=== PATIENT | female | born 1990 | race Caucasian/White ===

== ENCOUNTER 2018-07-28 06:50 | Inpatient (IN) | payer OTHER ==
[2018-07-28] VITALS (15 sets, daily range): BP systolic 106–148; BP diastolic 60–89; PULSE 80–111; TEMP 97.3–97.6
[~2018-07-28] VITALS: Ht 172.7 cm; Wt 95.5 kg
--- NOTE | 2018-07-28 06:45 | NUR ---
0611: Call from ER that 38wk patient arriving in ambulance bay in labor. 0613: Patient onto unit via stretcher escorted by EMS. Patient bearing down with contractions. Patient pants/underwear removed. SVE Complete. 0614: . Room, patient, and staff prepped for delivery. notified of patient in labor, requested on unit. 0615: Spontaneous vaginal delivery of viable male assisted by Rukhsana MCKEON. Care of infant assumed by Pillo MCKEON. 0630: at bedside. 0633: Spontaneous vaginal delivery of placenta assisted by . Pitocin infusing at 333ml/hr per orders. Fundus firm, lochia WNL. Perineum intact. 0635: Recovery started. Fundus firm, lochia WNL.
[~2018-07-28 06:50] MED LIST: FLAGYL500 MG PO; MOTRIN 600600 MG/TAB PO; NIFEREX-15150 MG/CAP PO; NO HOME MEDICATIONS; NORCO 325 MG-51 TAB PO; PERCOCET 325 MG1 TA2 PO; PHENERGAN 25 TA25 MG PO; PRENATAL1 TA1; PRENATAL1 TA1 PO
[2018-07-28 07:27] LABS: BASO % 0.2 % (0.0-2.0); EOS # 0.2 (0.0-0.7); EOS % 1.2 % (0-4.0); GRAN # 10.3 (1.4-6.5); GRAN % 70.6 % (42.2-75.2); HEMATOCRIT 37.9 % (37.0-47.0); HEMOGLOBIN 13.4 g/dl (12.5-16.0); LYMPH # 2.9 (1.2-3.4); LYMPH % 19.7 % (20.0-51.0); MEAN CELL VOLUME 91 fl (80.0-100.0); MEAN CORPUSCULAR HEMOGLOBIN 32 pg (27.0-31.0); MEAN CORPUSCULAR HGB CONC 35 g/dl (33.0-37.0); MEAN PLATELET VOLUME 10.4 fl (7.4-10.4); MONO # 1.1 (0.1-0.6); MONO % 7.3 % (1.7-9.3); PLATELET COUNT 293 K/mm3 (130-400); RED BLOOD COUNT 4.19 M/mm3 (4.10-5.30); REDCELL DISTRIBUTION WIDTH-CV 13.2 % (11.5-14.5)
--- NOTE | 2018-07-28 08:35 | NUR ---
Patient up to bathroom without difficulty. Toilet in hat but patient misses the hat when voiding. Encouraged to scoot up so we can collect urine but patient states she does not have to void any more. Patient to nursery via wheelchair to visit infant.
[2018-07-28] MEDS ORDERED: ZOLOFT 50MG50 MG (08:54)
[2018-07-28 11:04] LABS: TRICYCLIC ANTIDEPRESS URINE NEGATIVE
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
[2018-07-29 03:15] VITALS: BP 112/92; PULSE 83; TEMP 97.5
[2018-07-29 08:53] VITALS: BP 129/78; PULSE 98; TEMP 97.7
--- NOTE | 2018-07-29 09:57 | NUR ---
Initial visit; Mom thanked Drill Operator for offering congratulations and God's blessings for the of her son and for thanking her for choosing [facility].
--- NOTE | 2018-07-29 13:10 | NUR ---
Mother states that the babies father is going to come visit. Mother states that father of the baby is Nicola Hernandez. PD Dective Beaubein notifed. Security notified and Social work notfied.
--- NOTE | 2018-07-29 13:16 | NUR ---
MOHAN was contacted by Mara at [facility] ([phone]) about the CPS report that was made. MOHAN reported that the staff here at the hospital and [facility] would like DCF worker to visit patient and baby while patient is admitted to the hospital. MOHAN also provided Detective Rodríguez's phone number ([phone]) to DCF worker. MOHAN then contacted Detective Rodríguez and reported that DCF worker should be contacting him about this care. MOHAN also provided the phone number for the DCF worker to the e commerce architect. DCF worker is planning to visit patient and baby tomorrow morning.
--- NOTE | 2018-07-29 13:30 | NUR ---
Father of the baby her to visit mom. Father sits in rocking chair and states he is nervous to hold the baby. Mother excited for FOB to be here. This nurse leaves the room. Security on unit.
--- NOTE | 2018-07-29 14:30 | NUR ---
fur floor worker and nurse met with patient. Patient spoke with law enforcement on 06/28/18. Worker stated that DCF and police would collaborate and contact patient on 06/30/18 and evaluate a safety plan for patient and . Patient states the car seat she has is out dated. Patient states that she has a package of diapers. Patient now gives another address that she might be able to stay at on [address]. Patient is open to staying at the emergency [facility] for more support and stable housing. Father of baby came to visit patient. Worker spoke with Superintendent Logging and stressed concerns that patient does not have supplies and home to care for baby. Patient is not employed and has tested positive for drugs. Superintendent Logging stated he will be an active part of determining 's discharge plan. Worker collaborated with Dr Valdez.
--- NOTE | 2018-07-29 14:38 | NUR ---
family service caseworker contacted [facility] emergency services to obtain a car seat. Awaiting if they can assist with need.
[2018-07-29 15:19] VITALS: BP 124/81; PULSE 78; TEMP 97.4
[2018-07-29 22:22] VITALS: BP 135/78; PULSE 80; TEMP 97.8
--- NOTE | 2018-07-29 22:24 | NUR ---
WATCHING ED VIDEOS WITH BUBBA HORTON
[2018-07-30] MEDS ORDERED: MOTRIN 800800 MG/TAB PO (07:52)
[2018-07-30] MEDS ORDERED: PERCOCET 325 MG1 TA2 PO (07:53)
[2018-07-30 08:00] VITALS: BP 136/80; PULSE 87; TEMP 98.3
--- NOTE | 2018-07-30 10:00 | NUR ---
[phone] DCF visiting with patient and father of the baby. Panel Installer Beaubien and security remain on unit during this time.
--- NOTE | 2018-07-30 14:50 | NUR ---
herbarium worker on unit and notifies this nurse that the patient would be taken into police custody following discharge to boarder status.
--- NOTE | 2018-07-30 17:45 | NUR ---
Discharge instructions reviewed with patient. Patient discharged to boarder status.
--- NOTE | 2018-07-31 09:09 | NUR ---
On 07/30/18, executive secretary social welfare spoke with Brittney Gagnon, patient's correction office in [facility], per consent given by patient during assessment. Brittney stated she was aware patient was hospitalized for a high risk , however, was not aware of the positive drug results. Brittney advised that patient had "pleaded" for a release so that she could have her baby at [facility] as it was a high risk . On 07/22/18, the building maintenance technician had agreed and discharged patient from custody of [facility] correction. Due to the fact that patient tested positive for illegal drugs, Brittney placed an order for arrest on 07/30/18. Worker spoke with Detective Sloan and confirmed that father of the baby was going to be bonded out and would be able to make care decisions for baby as mother was going to be arrested. [facility] due to concerns that father of the baby might be allowed by police and DCF to gain custody of upon discharge. Worker confirmed with Detective Sloan, at a later time, that would be placed in protective custody by DCF with a scheduled discharge on 07/31. On this date, father of the baby was allowed to visit with infant, with police present. Worker spoke with Det. Sloan and Mara Rai, DCF and confirmed that infant will be taken into DCF custody today. Worker collaborated with Dr Valdez regarding the above information.
[2018-08-04 23:25] LABS: CONFIRMATION THC SERUM XXX
== END 2018-07-30 17:45 | disposition home or self-care (01) | DRG 806 ==
LOC: LDR 06:50 → OB 06:50
PROVIDERS: ADMIT Obstetrics & Gynecology
PROC: 10E0XZZ Delivery of Products of Conception, External Approach (ICD-10-PCS; principal; 2018-07-28)
DX: O99.324 Drug use complicating childbirth (principal); O98.42 Viral hepatitis complicating childbirth; Z37.0 Single live birth; Z3A.38 38 weeks gestation of pregnancy; F12.10 Cannabis abuse, uncomplicated; F15.10 Other stimulant abuse, uncomplicated; O36.1130 Maternal care for Anti-A sensitization, third trimester, not applicable or unspecified; O77.0 Labor and delivery complicated by meconium in amniotic fluid; B19.20 Unspecified viral hepatitis C without hepatic coma; O62.3 Precipitate labor
CPT/HCPCS: J2590

== ENCOUNTER 2021-12-07 18:56 | Observation (INO) | payer OTHER ==
[~2021-12-07] VITALS: Ht 170.2 cm; Wt 77.9 kg
[~2021-12-07 18:56] MED LIST changes: +MOTRIN 800800 MG/TAB PO; +ZOLOFT 50MG50 MG
[2021-12-07 19:27] LABS: BASO # 0.1 K/mm3 (0.0-0.2); BASO % 0.4 % (0.0-2.0); EOS # 0.3 K/mm3 (0.0-0.7); EOS % 2.1 % (0.0-4.0); HEMOGLOBIN 12.1 g/dl (12.5-16.0); LYMPH # 1.7 K/mm3 (1.2-3.4); MEAN CELL VOLUME 86 fl (80.0-100.0); MEAN CORPUSCULAR HEMOGLOBIN 29 pg (27-31); MEAN CORPUSCULAR HGB CONC 34 g/dl (33.0-37.0); MONO # 1.3 K/mm3 (0.1-0.6); MONO % 10.2 % (1.7-9.3); PLATELET COUNT 292 K/mm3 (130-400); RED BLOOD COUNT 4.17 M/mm3 (4.10-5.30); REDCELL DISTRIBUTION WIDTH-CV 14.4 % (11.5-14.5)
[2021-12-07 19:28] LABS: COLLECTION METHOD CLEAN CATCH
[2021-12-07 19:29] LABS: HEMATOCRIT 35.8 % (37.0-47.0)
[2021-12-07 19:35] LABS: URINE APPEARANCE Clear (CLEAR/HAZY); URINE BLOOD Negative (NEGATIVE); URINE COLOR Yellow (YELLOW); URINE GLUCOSE Negative (NEGATIVE); URINE KETONE Negative (NEGATIVE); URINE NITRATE Negative (NEGATIVE); URINE PROTEIN(semi-quant) Negative (NEGATIVE); URINE UROBILINOGEN 0.2 E.U/dL (0.2-1.0)
[2021-12-07 19:43] LABS: URINE BACTERIA None Seen /hpf (NONE SEEN); URINE RBC 0-2 /hpf (0-2)
[2021-12-07 19:45] LABS: ALBUMIN 3.4 gm/dL (3.5-5.0); BILIRUBIN,TOTAL 0.4 mg/dL (0.2-1.2); CALCIUM 9.6 mg/dL (8.4-10.2); CREATININE, serum 0.69 mg/dL (0.57-1.11); POTASSIUM 3.6 mmol/L (3.5-4.5); TOTAL PROTEIN 7.5 gm/dL (6.2-8.1)
[2021-12-08 00:08] VITALS: BP 123/69; PULSE 87; TEMP 97.6
[2021-12-08 03:58] VITALS: BP 100/62; PULSE 81; TEMP 97.9
--- NOTE | 2021-12-08 05:30 | NUR ---
PT ARRIVED TO THE MEDICAL FLOOR JUST AFTER MIDNIGHT TO ROOM 351, WITH A REIMBURSEMENT ANALYST PRESENT (PT PRESENTED TO THE ED FROM [facility]). PT A&O X 4; VSS FOR HER WITH SOME SOFT B/P'S; O2 RA. PT COMPLAINED OF ABD PAIN THIS MORNING. PT GIVEN ROXICODONE AND SCHEDULED TYLENOL AND MOTRIN FOR PAIN. PT FELT PAIN MEDICATION WAS EFFECTIVE AT THAT TIME. PT DENIED CHEST PAIN, PALPITATIONS, SOB, N,V,D OR DIZZINESS. ADMISSIONS ASSESSMENT AND MED REC COMPLETE. PT ORIENTED TO ROOM AND HOSPITAL POLICY. POC DISCUSSED WITH PT. PT VERBALIZED UNDERSTANDING. ALL QUESTIONS AND CONCERNS ADDRESSED. PT EXPRESSED NO ADDITIONAL NEEDS AT THIS TIME. CALL LIGHT WITHIN REACH.
[2021-12-08 06:38] LABS: HEMOGLOBIN 10.7 g/dl (12.5-16.0); MEAN CELL VOLUME 90 fl (80.0-100.0); MEAN CORPUSCULAR HEMOGLOBIN 30 pg (27-31); MEAN CORPUSCULAR HGB CONC 33 g/dl (33.0-37.0); MEAN PLATELET VOLUME 10.5 fl (7.4-10.4); PLATELET COUNT 237 K/mm3 (130-400); RED BLOOD COUNT 3.61 M/mm3 (4.10-5.30); REDCELL DISTRIBUTION WIDTH-CV 14.6 % (11.5-14.5)
[2021-12-08 06:54] LABS: HEMATOCRIT 32.4 % (37.0-47.0)
[2021-12-08 07:15] VITALS: BP 109/69; PULSE 79
[2021-12-08 07:31] LABS: BAND 1 % (0-10); EOSINOPHIL 4 % (0-4); LYMPHOCYTE 17 % (20.0-51.0); NEUTROPHILS 72 % (42.0-75.2); PLATELET ESTIMATE NORMAL (NORMAL)
[2021-12-08 11:21] VITALS: BP 104/52; PULSE 74; TEMP 97.4
--- NOTE | 2021-12-08 13:42 | NUR ---
Lift Driver rounds: Lift Driver visit attempted. Patient had a visitor with whom she wanted to talk. Declined Lift Driver visit.
[2021-12-08 16:03] VITALS: BP 101/70; PULSE 85; TEMP 98.3
[2021-12-08 19:57] VITALS: BP 106/56; PULSE 85; TEMP 98.5
[2021-12-09 00:45] VITALS: BP 101/58; PULSE 76; TEMP 98.1
--- NOTE | 2021-12-09 04:20 | NUR ---
ASSESSMENT COMPLETE FOR DIRECTOR OF FEDERAL SALES. PT RESTING IN BED WATCHING TV WITH HER GRAPHICS SOFTWARE ENGINEER BY HER SIDE. PT COMPLAINED OF ABD PAIN ONLY ONCE TONIGHT, SO FAR. PT GIVEN ROXICODONE FOR PAIN. PT FELT MEDICATION WAS EFFECTIVE FOR HER PAIN. PT ALSO FELT SCHEDULED TYLENOL AND MOTRIN HAS BEEN ABLE TO KEEP HER PAIN AT A MANAGEABLE LEVEL. PT DENIED CHEST PAIN, PALPITATIONS, SOB, N,V,D OR DIZZINESS. PT REQUESTED AND WAS ABLE TO TAKE A SHOWER TONIGHT WITH NO ISSUES. PT EXPRESSED NO ADDITIONAL NEEDS AT THIS TIME. CALL LIGHT WITHIN REACH.
[2021-12-09 04:28] VITALS: BP 120/73; PULSE 70; TEMP 98.1
[2021-12-09 07:58] VITALS: BP 113/66; PULSE 75; TEMP 97.9
[2021-12-09 11:44] LABS: HEMOGLOBIN 10.6 g/dl (12.5-16.0); MEAN CELL VOLUME 87 fl (80.0-100.0); MEAN CORPUSCULAR HEMOGLOBIN 29 pg (27-31); MEAN CORPUSCULAR HGB CONC 33 g/dl (33.0-37.0); MEAN PLATELET VOLUME 9.6 fl (7.4-10.4); PLATELET COUNT 266 K/mm3 (130-400); RED BLOOD COUNT 3.67 M/mm3 (4.10-5.30); REDCELL DISTRIBUTION WIDTH-CV 14.3 % (11.5-14.5)
[2021-12-09 11:45] VITALS: BP 111/61; PULSE 85; TEMP 98.4
[2021-12-09] MEDS ORDERED: IBU400 MG PO (12:55)
[2021-12-09] MEDS ORDERED: TYLENOL 500MG500 MG PO (12:56)
[2021-12-09] MEDS ORDERED: FLAGYL500 MG PO (12:56)
[2021-12-09] MEDS ORDERED: DOXYCYCLINE HY100 MG PO (12:56)
--- NOTE | 2021-12-09 15:17 | NUR ---
PATIENT GIVEN DISCHARGE INSTRUCTIONS AND EDUCATION WITH SECURITY ANGELA PRESENT. IV DISOCONTINUED. PATIENT LEFT IN STABLE CONDITION WITH SECURITY ANGELA ASSIGNED TO HER.
== END 2021-12-09 14:15 ==
LOC: COL.ER 18:56 → MEDICAL 22:28 → COL.ER 22:28 → MEDICAL 23:45
PROVIDERS: Emergency Medicine; Student in an Organized Health Care Education/Training Program; ADMIT Obstetrics & Gynecology
DX: N70.93 Salpingitis and oophoritis, unspecified (principal); F17.210 Nicotine dependence, cigarettes, uncomplicated; Z28.310 Unvaccinated for COVID-19; Z28.9 Immunization not carried out for unspecified reason
CPT/HCPCS: G0378; J2270; J2405; J2543; J7030; Q9967